=== PATIENT | male | born 1995 | race Caucasian/White ===

== ENCOUNTER 2017-08-10 12:15 | Observation (INO) | payer MEDICAID ==
[~2017-08-10] VITALS: Ht 182.9 cm; Wt 89.0 kg
[2017-08-10 12:17] VITALS: BP 156/88; PULSE 75; RESP 22; TEMP 98.9; O2SAT 93
[2017-08-10 12:22] VITALS: PULSE 89; RESP 18; O2SAT 98
[2017-08-10] MEDS ORDERED: LORazepam 2 MG/ML VIAL ONE (12:38)
[2017-08-10] MEDS ORDERED: SODIUM CHLORIDE 0.9% FLUSH 10 ML FLUSH IV FLUSH PRN (12:45)
--- NOTE | 2017-08-10 12:54 | PD ---
HPI Chief Complaint: Seizure Time Seen by Provider: 12:40 Travel History International Travel<30 days: No Contact w/Intl Traveler<30days: No Traveled to known affect area: No History of Present Illness HPI 21-year-old male presents for evaluation. According to staff the patient had a witnessed tonic-clonic seizure episode in triage. On initial examination the patient was postictal but then became verbally and physically aggressive. His mother arrived shortly after he did. he reports that he has had approximately 3 -4 episodes of seizure-like activity over the past 2 months but he has been refusing to be seen about it. This morning he had a seizure and she agreed to come for evaluation. Initially the patient denied any drug use but upon further questioning he admits to using some eduardo today. History currently limited. [facility] Social History Tobacco Use: No (unable to obtain) Substance Use: Yes (eduardo) Allergies-Medications (Allergen,Severity, Reaction): Coded Allergies: No Known Allergies (Unverified , 08/10/17) Reported Meds & Prescriptions Reported Meds & Active Scripts Active No Active Prescriptions or Reported Medications Review of Systems ROS Limitations: Uncooperative, Combative Except as stated in HPI: all other systems reviewed are Neg Physical Exam Exam Limitations: Uncooperative, Combative Narrative GENERAL: Well-developed well-nourished male who is shouting obscenities. SKIN: Warm and moist. HEAD: Atraumatic. Normocephalic. EYES: Pupils equal and round reactive to light extraocular muscles appear to be intact. No scleral icterus. No injection or drainage. ENT: No nasal bleeding or discharge. Mucous membranes pink and moist. NECK: Trachea midline. No JVD. CARDIOVASCULAR: Regular rate and rhythm. No murmur appreciated. RESPIRATORY: No accessory muscle use. Clear to auscultation. Breath sounds equal bilaterally. GASTROINTESTINAL: Abdomen soft, non-tender, nondistended. Hepatic and splenic margins not palpable. MUSCULOSKELETAL: No obvious deformities. No clubbing. No cyanosis. No edema. NEUROLOGICAL: Awake and alert. No obvious cranial nerve deficits. Motor grossly within normal limits. Normal speech. Data Data Last Documented VS Vital Signs Date Time Temp Pulse Resp B/P (MAP) Pulse Ox O2 Delivery O2 Flow Rate FiO2 08/10/17 14:51 97.8 81 17 128/81 (97) 98 Room Air Orders Orders Lorazepam Inj (Ativan Inj) (08/10/17 12:38) Electrocardiogram (08/10/17 12:41) Complete Blood Count With Diff (08/10/17 12:41) Comprehensive Metabolic Panel (08/10/17 12:41) Ct Brain W/O Iv Contrast(Rout) (08/10/17 12:41) Blood Glucose (08/10/17 12:41) Ecg Monitoring (08/10/17 12:41) Iv Access Insert/Monitor (08/10/17 12:41) Oximetry (08/10/17 12:41) Sodium Chloride 0.9% Flush (Ns Flush) (08/10/17 12:45) Drug Screen, Random Urine (08/10/17 12:41) Restraints Non-Violent LIMA.Q3H (08/10/17 12:41) Creatine Kinase (Cpk) (08/10/17 12:41) Restraints Violent (08/10/17 12:43) Sodium Chlor 0.9% 1000 Ml Inj (Ns 1000 M (08/10/17 14:30) Potassium, Serum (K) (08/10/17 14:21) Admit Order (Ed Use Only) (08/10/17 15:12) Labs Laboratory Tests Test 08/10/17 13:00 08/10/17 13:20 White Blood Count 8.6 TH/MM3 Red Blood Count 5.22 MIL/MM3 Hemoglobin 15.9 GM/DL Hematocrit 48.1 % Mean Corpuscular Volume 92.1 FL Mean Corpuscular Hemoglobin 30.4 PG Mean Corpuscular Hemoglobin Concent 33.0 % Red Cell Distribution Width 14.2 % Platelet Count 237 TH/MM3 Mean Platelet Volume 8.9 FL Neutrophils (%) (Auto) 50.8 % Lymphocytes (%) (Auto) 37.1 % Monocytes (%) (Auto) 8.5 % Eosinophils (%) (Auto) 1.8 % Basophils (%) (Auto) 1.8 % Neutrophils # (Auto) 4.4 TH/MM3 Lymphocytes # (Auto) 3.2 TH/MM3 Monocytes # (Auto) 0.7 TH/MM3 Eosinophils # (Auto) 0.2 TH/MM3 Basophils # (Auto) 0.2 TH/MM3 CBC Comment DIFF FINAL Differential Comment Blood Urea Nitrogen 17 MG/DL Creatinine 1.32 MG/DL Random Glucose 110 MG/DL Total Protein 8.4 GM/DL Albumin 4.6 GM/DL Calcium Level 9.6 MG/DL Alkaline Phosphatase 80 U/L Aspartate Amino Transf (AST/SGOT) 27 U/L Alanine Aminotransferase (ALT/SGPT) 24 U/L Total Bilirubin 0.7 MG/DL Sodium Level 142 MEQ/L Potassium Level 6.1 MEQ/L Chloride Level 106 MEQ/L Carbon Dioxide Level 19.7 MEQ/L Anion Gap 16 MEQ/L Estimat Glomerular Filtration Rate 69 ML/MIN Total Creatine Kinase 206 U/L Urine Opiates Screen NEG Urine Barbiturates Screen NEG Urine Amphetamines Screen NEG Urine Benzodiazepines Screen NEG Urine Cocaine Screen NEG Urine Cannabinoids Screen POS MDM Medical Decision Making Medical Screen Exam Complete: Yes Emergency Medical Condition: Yes Medical Record Reviewed: Yes Differential Diagnosis Seizure, intracranial mass hypoglycemia, electrolyte abnormality, substance induced seizure Narrative Course The patient was placed on ECG monitoring pulse oximetry. A 12-lead EKG was obtained. The patient was placed in restraints for his safety and staff safety. CT brain has been ordered. The patient was given 2 mg of Ativan. Upon reexamination the patient was still somewhat lethargic but more awake and alert. Given his history of recurrent seizures, the patient will be admitted for observation for further evaluation. Diagnosis Primary Impression: Seizures Admitting Information Admitting Physician Requests: Observation Scripts No Active Prescriptions or Reported Meds Abbe So Aug 10, 2017 12:54
[2017-08-10 13:32] VITALS: BP 128/74; PULSE 84; RESP 17; TEMP 97.8; O2SAT 99
[2017-08-10 13:50] LABS: AUTOMATED NEUTROPHIL # 4.4 TH/MM3 (1.8-7.7); BASOPHIL # 0.2 TH/MM3 (0-0.2); BASOPHIL % 1.8 % (0.0-2.0); EOSINOPHIL # 0.2 TH/MM3 (0-0.4); EOSINOPHIL % 1.8 % (0.0-4.0); HEMATOCRIT 48.1 % (39.0-51.0); HEMOGLOBIN 15.9 GM/DL (13.0-17.0); LYMPH % 37.1 % (9.0-44.0); LYMPHOCYTE # 3.2 TH/MM3 (1.0-4.8); MEAN CELL VOLUME 92.1 FL (80.0-100.0); MEAN CORPUSCULAR HEMOGLOBIN 30.4 PG (27.0-34.0); MEAN PLATELET VOLUME 8.9 FL (7.0-11.0); MONO % 8.5 % (0.0-8.0); MONOCYTE # 0.7 TH/MM3 (0-0.9); NEUT % 50.8 % (16.0-70.0); PLATELET COUNT 237 TH/MM3 (150-450); RED BLOOD COUNT 5.22 MIL/MM3 (4.50-5.90); RED CELL DISTRIBUTION WIDTH 14.2 % (11.6-17.2); WHITE BLOOD COUNT 8.6 TH/MM3 (4.0-11.0)
[2017-08-10 14:08] LABS: ALT (GPT) 24 U/L (9-52)
[2017-08-10 14:15] LABS: ALBUMIN 4.6 GM/DL (3.4-5.0); ALKALINE PHOSPHATASE 80 U/L (45-117); AST (GOT) 27 U/L (15-39); BICARBONATE 19.7 MEQ/L (21.0-32.0); BLOOD UREA NITROGEN 17 MG/DL (7-18); CALCIUM 9.6 MG/DL (8.5-10.1); CHLORIDE 106 MEQ/L (98-107); CREATININE 1.32 MG/DL (0.60-1.30); GLOMERULAR FILTRATION RATE 69 ML/MIN (>89); GLUCOSE,RANDOM 110 MG/DL (74-106); SODIUM (NA) 142 MEQ/L (136-145); TOTAL BILIRUBIN ADULT 0.7 MG/DL (0.2-1.0); TOTAL PROTEIN 8.4 GM/DL (6.4-8.2)
--- NOTE | 2017-08-10 14:25 | RADRPT ---
EXAM DATE/TIME: 08/10/2017 14:06 [facility] COMPARISON: No previous studies available for comparison. INDICATIONS : Agitated and confused RADIATION DOSE: 35.67 CTDIvol (mGy) MEDICAL HISTORY : None SURGICAL HISTORY : None. ENCOUNTER: Initial ACUITY: 1 day PAIN SCALE: 0/10 LOCATION: cranial TECHNIQUE: Multiple contiguous axial images were obtained of the head. Using automated exposure control and adj ustment of the mA and/or kV according to patient size, radiation dose was kept as low as reasonably a chievable to obtain optimal diagnostic quality images. DICOM format image data is available electro nically for review and comparison. FINDINGS: CEREBRUM: The ventricles are normal for age. No evidence of midline shift, mass lesion, hemorrhage or acute in farction. No extra-axial fluid collections are seen. POSTERIOR FOSSA: The cerebellum and brainstem are intact. The 4th ventricle is midline. The cerebellopontine angle i s unremarkable. EXTRACRANIAL: The visualized portion of the orbits is intact. SKULL: The calvaria is intact. No evidence of skull fracture. CONCLUSION: No acute disease. Alexander Judge MD on August 10, 2017 at 14:22 Board Certified Radiologist. This report was verified electronically.
[2017-08-10] MEDS ORDERED: SODIUM CHLOR 0.9% 1000 ML INJ 1,000 ML IV ONE (14:30)
--- NOTE | 2017-08-10 14:38 | PD ---
Physical Exam Date Seen by Provider: Aug 10, 2017 Time Seen by Provider: 12:30 Narrative I, Dr. Ch, have reviewed the advance practice practitioner's documentation and am in agreement, met with the patient face to face, made the diagnosis, and the medical decision making was done by me. *My assessment and Findings: Patient seen and evaluated with PA, please see PA note for further details. Patient has been having new onset of seizures and has had multiple recent seizures and has not had follow-up. He apparently had seizures today according to mom, and had a witnessed seizure in triage. He was initially fairly post ictal and disoriented, had to be given and workup was initiated. Laboratory Tests Test 08/10/17 13:00 08/10/17 13:20 Monocytes (%) (Auto) 8.5 % (0.0-8.0) Creatinine 1.32 MG/DL (0.60-1.30) Random Glucose 110 MG/DL (74-106) Total Protein 8.4 GM/DL (6.4-8.2) Potassium Level 6.1 MEQ/L (3.5-5.1) Carbon Dioxide Level 19.7 MEQ/L (21.0-32.0) Anion Gap 16 MEQ/L (5-15) Estimat Glomerular Filtration Rate 69 ML/MIN (>89) Urine Cannabinoids Screen POS (NEG) Last [address] 08/10/17 1241 Signed Impressions: Service Date/Time: August 14:06 - CONCLUSION: No acute disease. Alexander Judge MD CAT scan did not show any signs of acute intracranial processes. He admits to taking marijuana. Lab work otherwise showed a hemolyzed potassium and potassium was repeated. Vital signs are stable in the ER. He was reevaluated at 2:30 PM is awake, alert, and conversant. At this point, my plan would be to admit him for further evaluation of the seizures. Data Data Last Documented VS Vital Signs Date Time Temp Pulse Resp B/P (MAP) Pulse Ox O2 Delivery O2 Flow Rate FiO2 08/10/17 13:32 97.8 84 17 128/74 (92) 99 Room Air Orders Orders Lorazepam Inj (Ativan Inj) (08/10/17 12:38) Electrocardiogram (08/10/17 12:41) Complete Blood Count With Diff (1/4/18 12:41) Comprehensive Metabolic Panel (08/10/17 12:41) Ct Brain W/O Iv Contrast(Rout) (08/10/17 12:41) Blood Glucose (08/10/17 12:41) Ecg Monitoring (08/10/17 12:41) Iv Access Insert/Monitor (08/10/17 12:41) Oximetry (08/10/17 12:41) Sodium Chloride 0.9% Flush (Ns Flush) (08/10/17 12:45) Drug Screen, Random Urine (08/10/17 12:41) Restraints Non-Violent LIMA.Q3H (08/10/17 12:41) Creatine Kinase (Cpk) (08/10/17 12:41) Restraints Violent (08/10/17 12:43) Sodium Chlor 0.9% 1000 Ml Inj (Ns 1000 M (08/10/17 14:30) Potassium, Serum (K) (08/10/17 14:21) Labs Laboratory Tests Test 08/10/17 13:00 08/10/17 13:20 White Blood Count 8.6 TH/MM3 Red Blood Count 5.22 MIL/MM3 Hemoglobin 15.9 GM/DL Hematocrit 48.1 % Mean Corpuscular Volume 92.1 FL Mean Corpuscular Hemoglobin 30.4 PG Mean Corpuscular Hemoglobin Concent 33.0 % Red Cell Distribution Width 14.2 % Platelet Count 237 TH/MM3 Mean Platelet Volume 8.9 FL Neutrophils (%) (Auto) 50.8 % Lymphocytes (%) (Auto) 37.1 % Monocytes (%) (Auto) 8.5 % Eosinophils (%) (Auto) 1.8 % Basophils (%) (Auto) 1.8 % Neutrophils # (Auto) 4.4 TH/MM3 Lymphocytes # (Auto) 3.2 TH/MM3 Monocytes # (Auto) 0.7 TH/MM3 Eosinophils # (Auto) 0.2 TH/MM3 Basophils # (Auto) 0.2 TH/MM3 CBC Comment DIFF FINAL Differential Comment Blood Urea Nitrogen 17 MG/DL Creatinine 1.32 MG/DL Random Glucose 110 MG/DL Total Protein 8.4 GM/DL Albumin 4.6 GM/DL Calcium Level 9.6 MG/DL Alkaline Phosphatase 80 U/L Aspartate Amino Transf (AST/SGOT) 27 U/L Alanine Aminotransferase (ALT/SGPT) 24 U/L Total Bilirubin 0.7 MG/DL Sodium Level 142 MEQ/L Potassium Level 6.1 MEQ/L Chloride Level 106 MEQ/L Carbon Dioxide Level 19.7 MEQ/L Anion Gap 16 MEQ/L Estimat Glomerular Filtration Rate 69 ML/MIN Total Creatine Kinase 206 U/L Urine Opiates Screen NEG Urine Barbiturates Screen NEG Urine Amphetamines Screen NEG Urine Benzodiazepines Screen NEG Urine Cocaine Screen NEG Urine Cannabinoids Screen POS MDM Medical Record Reviewed: Yes Supervised Visit with FABIOLA: Yes Diagnosis Primary Impression: Seizures Admitting Information Admitting Physician Requests: Admit Scripts No Active Prescriptions or Reported Meds Jaymie Ch MD Aug 10, 2017 14:38
[2017-08-10 14:51] VITALS: BP 128/81; PULSE 81; RESP 17; TEMP 97.8; O2SAT 98
--- NOTE | 2017-08-10 15:24 | HHI.HP ---
[facility] Service [facility] Primary Care Physician No Primary Care Physician Admission Diagnosis seizures Diagnoses: (1) Seizures Diagnosis: Principal Chief Complaint: seizure Travel History International Travel<30 Days: No Contact w/Intl Traveler <30 Da: No Traveled to Known Affected Are: No History of Present Illness patient is a 21 y/o male with history of seizure was brought to ER after he had a seizure episode. the mother says that he had the first seizure episode three months ago. however he never had a neurology work-up and didn't take any antiepileptics. since then he had on and off ' sweating spells'. however today he had another seizure episode. while he was waiting in ER he had one more tonic -clonic seizure. he did bite his tongue but no urine incontinence. he was awake and alert at the time of my evaluation but he said that he wasn't feeling good. he has a history of smoking marijuana. Review of Systems Constitutional: DENIES: Fever, Weight loss, Chills, Night Sweats Eyes: DENIES: Blurred vision, Diplopia, Vision loss, Double Vision Ears, nose, mouth, throat: DENIES: Tinnitus, Vertigo, Throat pain, Epistaxis Respiratory: DENIES: Apneas, Cough, Snoring, Wheezing, Hemoptysis, Sputum production, Shortness of breath Cardiovascular: DENIES: Chest pain, Palpitations, Syncope, Dyspnea on Exertion , PND, Lower Extremity Edema, Orthopnea, Claudication Gastrointestinal: DENIES: Abdominal pain, Black stools, Bloody stools, Constipation, Diarrhea, Nausea, Vomiting, Difficulty Swallowing, Anorexia Genitourinary: DENIES: Urinary frequency, Urgency, Hematuria, Dysuria Musculoskeletal: DENIES: Joint pain, Muscle aches, Stiffness, Joint Swelling Integumentary: DENIES: Rash Neurologic: COMPLAINS OF: Seizures, DENIES: Abnormal gait, Headache, Localized weakness, Paresthesias, Speech Problems, Tremor, Poor Balance Psychiatric: DENIES: Anxiety, Confusion, Mood changes, Depression, Hallucinations, Agitation, Suicidal Ideation, Homicidal Ideation, Delusions Past Family Social History Past Medical History seizure. Past Surgical History surgery on the testicles. Reported Medications none. Allergies: Coded Allergies: No Known Allergies (Unverified , 08/10/17) Active Ordered Medications Inpatient Medications Sodium Chloride 1,000 ml @ 999 mls/hr BOLUS ONCE IV Last administered on at 14:41; Start 08/10/17 at 14:30; Stop 08/10/17 at 15:30 Sodium Chloride (NS Flush) 2 ml UNSCH PRN IV FLUSH FLUSH AFTER USING IV ACCESS Last administered on 08/10/17at 12:48; Start 08/10/17 at 12:45 Social History smokes marijuana. Physical Exam Vital Signs Vital Signs Date Time Temp Pulse Resp B/P (MAP) Pulse Ox O2 Delivery O2 Flow Rate FiO2 08/10/17 14:51 97.8 81 17 128/81 (97) 98 Room Air 08/10/17 13:32 97.8 84 17 128/74 (92) 99 Room Air 08/10/17 12:22 98 18 98 Room Air 08/10/17 12:22 89 18 98 Room Air 08/10/17 12:17 98.9 75 22 156/88 (110) 93 Room Air Physical Exam GENERAL: This is a well-nourished, well-developed patient, in no apparent distress. SKIN: No rashes, ecchymoses or lesions. Cool and dry. HEAD: Atraumatic. Normocephalic. No temporal or scalp tenderness. EYES: Pupils equal round and reactive. Extraocular motions intact. No scleral icterus. No injection or drainage. ENT: Nose without bleeding, purulent drainage or septal hematoma. Throat without erythema, tonsillar hypertrophy or exudate. Uvula midline. Airway patent. NECK: Trachea midline. No JVD or lymphadenopathy. Supple, nontender, no meningeal signs. CARDIOVASCULAR: Regular rate and rhythm without murmurs, gallops, or rubs. RESPIRATORY: Clear to auscultation. Breath sounds equal bilaterally. No wheezes , rales, or rhonchi. GASTROINTESTINAL: Abdomen soft, non-tender, nondistended. No hepato-splenomegaly , or palpable masses. No guarding. MUSCULOSKELETAL: Extremities without clubbing, cyanosis, or edema. No joint tenderness, effusion, or edema noted. No calf tenderness. Negative Homans sign bilaterally. NEUROLOGICAL: Awake and alert. Cranial nerves II through XII intact. Motor and sensory grossly within normal limits. Five out of 5 muscle strength in all muscle groups. Normal speech. Laboratory Laboratory Tests Test 08/10/17 13:00 08/10/17 13:20 White Blood Count 8.6 Red Blood Count 5.22 Hemoglobin 15.9 Hematocrit 48.1 Mean Corpuscular Volume 92.1 Mean Corpuscular Hemoglobin 30.4 Mean Corpuscular Hemoglobin Concent 33.0 Red Cell Distribution Width 14.2 Platelet Count 237 Mean Platelet Volume 8.9 Neutrophils (%) (Auto) 50.8 Lymphocytes (%) (Auto) 37.1 Monocytes (%) (Auto) 8.5 Eosinophils (%) (Auto) 1.8 Basophils (%) (Auto) 1.8 Neutrophils # (Auto) 4.4 Lymphocytes # (Auto) 3.2 Monocytes # (Auto) 0.7 Eosinophils # (Auto) 0.2 Basophils # (Auto) 0.2 CBC Comment DIFF FINAL Differential Comment Blood Urea Nitrogen 17 Creatinine 1.32 Random Glucose 110 Total Protein 8.4 Albumin 4.6 Calcium Level 9.6 Alkaline Phosphatase 80 Aspartate Amino Transf (AST/SGOT) 27 Alanine Aminotransferase (ALT/SGPT) 24 Total Bilirubin 0.7 Sodium Level 142 Potassium Level 6.1 Chloride Level 106 Carbon Dioxide Level 19.7 Anion Gap 16 Estimat Glomerular Filtration Rate 69 Total Creatine Kinase 206 Urine Opiates Screen NEG Urine Barbiturates Screen NEG Urine Amphetamines Screen NEG Urine Benzodiazepines Screen NEG Urine Cocaine Screen NEG Urine Cannabinoids Screen POS Result Diagram: 08/10/17 1300 08/10/17 1300 Imaging Last Impressions Head CT 08/10/17 1241 Signed Impressions: Service Date/Time: August 14:06 - CONCLUSION: No acute disease. MD Tonia Alfonsoi VTE Risk Assessment Caprini VTE Risk Assessment: No/Low Risk (score <= 1) Caprini Risk Assessment Model Point Value = 1 Point Value = 2 Point Value = 3 Point Value = 5 Age 41-60 Minor surgery BMI > 25 kg/m2 Swollen legs Varicose veins or History of unexplained or recurrent spontaneous Oral contraceptives or hormone replacement Sepsis (< 1 month) Serious lung disease, including pneumonia (< 1 month) Abnormal pulmonary function Acute myocardial infarction Congestive heart failure (< 1 month) History of inflammatory bowel disease Medical patient at bed rest Age 61-74 Arthroscopic surgery Major open surgery (> 45 min) Laparoscopic surgery (> 45 min) Malignancy Confined to bed (> 72 hours) Immobilizing plaster cast Central venous access Age >= 75 History of VTE Family history of VTE Factor V Leiden Prothrombin [id number] Lupus anticoagulant Anticardiolipin antibodies Elevated serum homocysteine Heparin-induced thrombocytopenia Other congenital or acquired thrombophilia Stroke (< 1 month) Elective arthroplasty Hip, pelvis, or leg fracture Acute spinal cord injury (< 1 month) Prophylaxis Regimen Total Risk Factor Score Risk Level Prophylaxis Regimen 0-1 Low Early ambulation 2 Moderate Order ONE of the following: *Sequential Compression Device (SCD) *Heparin 5000 units SQ BID 3-4 Higher Order ONE of the following medications: *Heparin 5000 units SQ TID *Enoxaparin/Lovenox 40 mg SQ daily (WT < 150 kg, CrCl > 30 mL/min) *Enoxaparin/Lovenox 30 mg SQ daily (WT < 150 kg, CrCl > 10-29 mL/min) *Enoxaparin/Lovenox 30 mg SQ BID (WT < 150 kg, CrCl > 30 mL/min) AND/OR *Sequential Compression Device (SCD) 5 or more Highest Order ONE of the following medications: *Heparin 5000 units SQ TID (Preferred with Epidurals) *Enoxaparin/Lovenox 40 mg SQ daily (WT < 150 kg, CrCl > 30 mL/min) *Enoxaparin/Lovenox 30 mg SQ daily (WT < 150 kg, CrCl > 10-29 mL/min) *Enoxaparin/Lovenox 30 mg SQ BID (WT < 150 kg, CrCl > 30 mL/min) AND *Sequential Compression Device (SCD) Assessment and Plan Assessment and Plan A/P - recurrent seizure continue with neuro-checks and seizure precaution. ativan prn- obtain EEG and neurology consult. -acute kidney injury; start on IV fluid- check CPK level- monitor renal function ; BMP in am. -hyperkalemia; repeat the level today. Discussed Condition With the patient and his mother- Moses Caceres MD Aug 10, 2017 15:23
[2017-08-10] MEDS: SODIUM CHLOR 0.9% 1000 ML INJ 1,000 ML IV SCH ×2 (15:25→21:41)
[2017-08-10] MEDS ORDERED: LORazepam 2 MG/ML VIAL IV PUSH PRN (15:30)
[2017-08-10] MEDS ORDERED: GADODIAMIDE PF 287 MG/ML 5 ML VIAL (for RAD MRI) IV PUSH ONE (18:10)
[2017-08-10 18:39] VITALS: BP 126/58; PULSE 66; RESP 20; TEMP 95.7; O2SAT 99
--- NOTE | 2017-08-10 18:42 | RADRPT ---
EXAM DATE/TIME: 08/10/2017 17:52 [facility] COMPARISON: CT BRAIN W/O CONTRAST, August 10, 2017, 14:06. INDICATIONS : Altered mental status. Seizures. CONTRAST: 17 cc Omniscan (gadodiamide) IV MEDICAL HISTORY : Seizures. SURGICAL HISTORY : Testicular. ENCOUNTER: Subsequent ACUITY: 1 day PAIN SCORE: 3/10 LOCATION: cranial TECHNIQUE: Multiplanar, multisequence MRI of the brain was performed both prior to and following the administrat ion of paramagnetic contrast. FINDINGS: CEREBRUM: The ventricles are normal for age. No evidence of midline shift, mass lesion, hemorrhage or acute in farction. No extraaxial fluid collections are seen. The pituitary gland and suprasellar cistern are normal in configuration. WHITE MATTER: No significant signal abnormalities are seen in the white matter. POSTERIOR FOSSA: The cerebellum and brainstem are intact. The 4th ventricle is midline. The cerebellopontine angle is unremarkable. The cerebellar tonsils are normal in position. DIFFUSION IMAGING: No focal areas of restricted diffusion are seen. No evidence of acute infarction. EXTRACRANIAL: The visualized portions of the orbits and paranasal sinuses are unremarkable. POST-CONTRAST: No abnormal areas of parenchymal or dural enhancement. No evidence of blood-brain barrier breakdown. CONCLUSION: Normal examination. Ananda Johnson MD on August 10, 2017 at 18:39 Board Certified Radiologist. This report was verified electronically.
--- NOTE | 2017-08-10 20:17 | MB ---
cc: CALISTA MÁRQUEZ MD DATE OF CONSULTATION 08/10/17 REASON FOR CONSULTATION Seizures. HISTORY OF PRESENT ILLNESS Mr. Holloway is a 21-year-old -[place] male with past medical history of a single seizure June 2017 for which he was not worked up and has not followed with a neurologist. The patient's significant other and their son are at the bedside. She states that occasionally he has mouth chewing movement, rolling of the tongue without generalized convulsions, however, during this episode the patient while playing with his son looked upwards, i.e., he stared back and then did abnormal movement in his both upper extremities and the lower body started shaking followed by a confusional state. No tongue biting, no sphincter control disturbances were noted. The previous episode was similar to this one in June. He is not on any seizure medication. The mother was on a phone conference, denies any history of childhood epilepsy, or head injury and no family history of epilepsy. No recent change in lifestyle, no medications have been added. REVIEW OF SYSTEMS A 12-point review of systems is negative except for what is stated in the HPI. PAST MEDICAL HISTORY Seizure. PAST SURGICAL HISTORY Surgery of the testicles, MEDICATIONS None. ALLERGIES No known allergies. FAMILY HISTORY Noncontributory PHYSICAL EXAMINATION GENERAL: The patient is sleepy, lethargic in a postictal state, however, arousable. HEENT: Atraumatic, normocephalic. Intact hearing. Intact vision. NECK: Supple. No signs of meningeal irritation. Cardiovascular: Regular rate and rhythm. Respiratory: Clear to auscultation. GASTROINTESTINAL: Soft abdomen, nontender. MUSCULOSKELETAL: Extremities without clubbing, cyanosis or edema. NEUROLOGIC: Awake and sleepy, however, arousable. Gross examination. Cranial nerves intact. No dysarthria or dysphagia, Moves extremities equally. The patient is sleepy and not cooperative, but grossly moves all extremities and feels sensation in the four extremities. LABORATORY DATA WBC 8.6, hemoglobin 15.9, platelet count 237, LFT normal, anion gap 16. UDS is positive for cannabinoids. Diagnostic Imaging: - Head CT scan - no acute intracranial disease. DIAGNOSTIC IMPRESSION 1. Recurrent seizures . 2. Acute kidney injury 3. Hyperlipidemia. PLAN 1. Neuro checks q. four hourly 2. Seizure precautions. 3. Keppra 500 mg twice daily 4. EEG 5. MRI brain with and without contrast/seizure protocol 6. Seizure precautions. 7. GI prophylaxis. The case was discussed with the significant other and mother who was on the phone. Thank you for the opportunity to participate in the care of your patient. MD VEENA Carlos/ /5:20 PM /7:39 PM MTDD
[2017-08-10] MEDS: levETIRAcetam 500 MG TAB PO SCH (21:40)
[2017-08-10] MEDS ORDERED: ONDANSETRON HCL 4 MG/2 ML VIAL IV PUSH PRN (22:00)
[2017-08-10 22:50] VITALS: BP_SYST 111; BP_SYST 119; BP_DIAS 55; BP_DIAS 70; PULSE 67; PULSE 96; RESP 18; TEMP 98.1; O2SAT 99
[2017-08-11 03:27] VITALS: BP 108/60; PULSE 57; RESP 18; O2SAT 97
[2017-08-11] MEDS: SODIUM CHLOR 0.9% 1000 ML INJ 1,000 ML IV SCH (05:49)
[2017-08-11 09:16] VITALS: BP 133/68; PULSE 67; RESP 18; TEMP 96.7; O2SAT 100
[2017-08-11] MEDS: levETIRAcetam 500 MG TAB PO SCH (10:18)
--- NOTE | 2017-08-11 11:05 | MG ---
cc: CONSTANTINO NICHOLS M.D. Lab No: [id number] Date: 08/11/2017 Age: Sex: M Race: TECHNIQUE A 17-channel EEG. DESCRIPTION The background rhythm is that of a symmetrical alpha rhythm, frequency of 8 Hz, amplitude is about 20 microvolts. There is rare muscle artifact present. Hyperventilation was done with good effort with no change in the background rhythm. Photic stimulation results in a normal driving response. There are no epileptiform features. Nonspecific sharp activity is identified over the left temporal area but this is not truly epileptiform. INTERPRETATION Normal EEG. MD ALESSANDRO Jasmine/JASON /10:38 AM /10:43 AM
[2017-08-11 11:55] LABS: BICARBONATE 28.6 MEQ/L (21.0-32.0); CALCIUM 8.7 MG/DL (8.5-10.1); CREATININE 1.07 MG/DL (0.60-1.30)
[2017-08-11 12:47] VITALS: BP 127/64; PULSE 73; RESP 18; TEMP 96.6; O2SAT 99
--- NOTE | 2017-08-11 13:30 | HHI.PR ---
Subjective Remarks in no acute distress. no further seizures. no new complaints. Objective Vitals Vital Signs Date Time Temp Pulse Resp B/P (MAP) Pulse Ox O2 Delivery O2 Flow Rate FiO2 08/11/17 12:47 96.6 73 18 127/64 (85) 99 08/11/17 09:16 96.7 67 18 133/68 (89) 100 08/11/17 03:27 57 18 108/60 (76) 97 08/10/17 22:50 98.1 67 18 111/55 (73) 99 08/10/17 18:39 95.7 66 20 126/58 (80) 99 08/10/17 17:30 08/10/17 14:51 97.8 81 17 128/81 (97) 98 Room Air 08/10/17 13:32 97.8 84 17 128/74 (92) 99 Room Air I/O 08/10/17 08/10/17 08/10/17 08/11/17 08/11/17 08/11/17 07:00 15:00 23:00 07:00 15:00 23:00 Intake Total 1000 ml 500 ml Balance 1000 ml 500 ml Intake Oral 500 ml IV Total 1000 ml # Voids 4 Result Diagram: 08/10/17 1300 08/11/17 1110 Imaging Last Impressions Head CT 08/10/17 1241 Signed Impressions: Service Date/Time: August 14:06 - CONCLUSION: No acute disease. Alexander Judge MD Brain MRI 08/10/17 0000 Signed Impressions: Service Date/Time: August 17:52 - CONCLUSION: Normal examination. Ananda Johnson MD Objective Remarks GENERAL: This is a well-nourished, well-developed patient, in no apparent distress. CARDIOVASCULAR: Regular rate and regular rhythm without murmurs, gallops, or rubs. RESPIRATORY: Clear to auscultation. Breath sounds equal bilaterally. No wheezes , rales, or rhonchi. GASTROINTESTINAL: Abdomen soft, non-tender, nondistended. Normal, active bowel sounds MUSCULOSKELETAL: Extremities without clubbing, cyanosis, or edema. NEURO: Alert & Oriented x4 to person, place, time, situation. Moves all ext x4 Medications and IVs Inpatient Medications Levetriacetam (Keppra) 500 mg Q12HR PO Last administered on 08/11/17at 10:18; Start 08/10/17 at 21:00 Lorazepam (Ativan Inj) 1 mg Q15M PRN IV PUSH SEIZURE; Start 08/10/17 at 15:30 Ondansetron HCl (Zofran Inj) 4 mg Q8HR PRN IV PUSH NAUSEA; Start 08/10/17 at 22: 00 Sodium Chloride 1,000 ml @ 125 mls/hr Q8H IV Last administered on 08/11/17at 05: 49; Start 08/10/17 at 15:15 Sodium Chloride (NS Flush) 2 ml UNSCH PRN IV FLUSH FLUSH AFTER USING IV ACCESS Last administered on 08/10/17at 12:48; Start 08/10/17 at 12:45 A/P Problem List: (1) Seizures ICD Code: R56.9 - Unspecified convulsions Status: Acute Assessment and Plan - recurrent seizure MRI brain and EEG normal. started on Keprra. -acute kidney injury; improved. -hyperkalemia; resolved. Discharge Planning dc home today if cleared by neurology. f/u; pcp and neurology. no driving. see med list. d/w the patient. Moses Lo MD Aug 11, 2017 13:30
[2017-08-11] MEDS ORDERED: LEVE500 PO (13:31)
--- NOTE | 2017-08-11 23:09 | EKG ---
Date Performed: 08/10/2017 Time Performed: 13:29:01 PTAGE: 21 years EKG: Sinus rhythm WITH SINUS ARRHYTHMIA ST ELEVATION, PROBABLY EARLY REPOLARIZATION BORDERLINE ECG NO PREVIOUS TRACING DOCTOR: Erick Gupta Interpretating Date/Time 08/11/2017 23:09:43
== END 2017-08-11 18:37 | disposition home or self-care (01) ==
LOC: NEPE 12:15 → NEDA 15:13 → NEPGCP 18:19
PROVIDERS: ADMIT Internal Medicine; ATTEND Internal Medicine
DX: G40.89 Other seizures (principal); R94.31 Abnormal electrocardiogram [ECG] [EKG]; N17.9 Acute kidney failure, unspecified; E87.5 Hyperkalemia; F12.90 Cannabis use, unspecified, uncomplicated; E78.5 Hyperlipidemia, unspecified; Z78.1 Physical restraint status
CPT/HCPCS: 70450; 70553; 80048; 80053; 80307; 82550; 84132; 85025; 93005; 95819; 96361; 96374; 99285; A9579; G0378; J2060; J7030